=== PATIENT | male | born 1990 | race African-American/Black ===

== ENCOUNTER 2016-11-21 23:22 | Inpatient (IN) | payer MEDICAID ==
--- NOTE | 2016-11-16 21:40 | NUR ---
INFORMED DR. CHERY PATIENT WENT ON AMA.
[~2016-11-21] VITALS: Ht 167.6 cm; Wt 120.7 kg
[2016-11-21 23:31] VITALS: BP 142/58
--- NOTE | 2016-11-21 23:36 | NUR ---
PT TAKEN TO BED 6
--- NOTE | 2016-11-21 23:38 | NUR ---
PT IS 25M BIB BROTHER TO ED WITH C/O ANAL ABCESS, FEVER AND CHILLS X 2 DAYS AGO. CURRENT TEMP IS 101.4 F. PT STATES NO MED HX. DENIES N/V/D; SKIN IS PINK/WARM/DRY; AAOX4 WITH EVEN AND STEADY GAIT; LUNGS CLEAR BL; HR EVEN AND REGULAR; PT DENIES ANY FEVER, CP, SOB, OR COUGH AT THIS TIME; PATIENT STATES PAIN OF 10/10 AT THIS TIME; VSS; PATIENT POSITIONED FOR COMFORT; HOB ELEVATED; BEDRAILS UP X2; BED DOWN. ER MD MADE AWARE OF PT STATUS.
[2016-11-21] MEDS ORDERED: ONDANSETRON 4 MG/2 ML VIAL IVP ONE (23:55)
[2016-11-21] MEDS ORDERED: SULFAMETH/TRIMETH DS 800/160MG 1 TAB PO ONE (23:55)
[2016-11-21] MEDS ORDERED: MORPHINE SULFATE 4 MG/ML SYR IVP ONE (23:55)
[2016-11-22] MEDS ORDERED: ceFAZolin 1,000 MG VIAL ONE (00:07)
[2016-11-22] MEDS ORDERED: MORPHINE SULFATE 4 MG/ML SYR IVP ONE (00:40)
--- NOTE | 2016-11-22 00:55 | NUR ---
DR ARRIAGA AT BEDSIDE DOING I&D PROCEDURE
[2016-11-22] MEDS ORDERED: fentaNYL 0.05 MG/ML VIAL IVP ONE (01:10)
[2016-11-22] MEDS ORDERED: LORazepam 2 MG/ML VIAL IVP PRN (01:50)
[2016-11-22] MEDS ORDERED: ONDANSETRON 4 MG/2 ML VIAL IVP PRN (01:50)
[2016-11-22] MEDS ORDERED: MORPHINE SULFATE 2 MG/ML SYR IVP PRN (01:50)
--- NOTE | 2016-11-22 01:53 | NUR ---
PT TAKEN OFF THE UNIT VIA WHEELCHAIR TO HAVE CT DONE.
[2016-11-22] MEDS ORDERED: NACL 0.9% 1,000 ML IV ONE (02:05)
[2016-11-22] MEDS ORDERED: AMPICILLIN/SULBACTAM 3 GM in NACL 0.9% 100 ML IV ONE (02:05)
[2016-11-22] MEDS ORDERED: AMPICILLIN/SULBACTAM 3 GM VIAL ONE (02:16)
--- NOTE | 2016-11-22 02:33 | NUR ---
PT RETURN FROM CT
[2016-11-22] MEDS: AMPICILLIN/SULBACTAM 3 GM in NACL 0.9% 100 ML IV SCH ×3 (02:38→17:48)
--- NOTE | 2016-11-22 02:47 | NUR ---
Patient will be admitted to care of DR LYN. Admited to TELE. Will go to [id number]. Belongings list completed. Report to CAITY MARI.
--- NOTE | 2016-11-22 03:05 | NUR ---
ADMITTED 25 YEAR OLD PT FROM ER. PT ARRIVED VIA GURNEY. INITIAL ASSESSMENT COMPLETED. PT AAOX4. PT DENIES PAIN AT THIS TIME. PT AMBULATES PT HAS DRESSING ON LEFT BUTTOCK. VS STABLE. PT HAS IV TO LEFT FAA G 22 AND LEFT AC G 20; BOTH ASYMPTOMATIC, PATENT AND INTACT. ORIENTED PT TO ROOM AND SURROUNDINGS AND USE OF CALL LIGHT. EXPLAINED PLAN OF CARE TO PT AND HE VERBALIZES UNDERSTANDING. CALL LIGHT WITHIN REACH.
[2016-11-22 04:00] VITALS: BP 120/79
[2016-11-22] MEDS: NACL 0.9% 1,000 ML IV SCH ×4 (04:13→18:30)
--- NOTE | 2016-11-22 05:01 | NUR ---
PT USING HIS CELL PHONE. PT DENIES PAIN. WILL CONTINUE TO MONITOR PT.
--- NOTE | 2016-11-22 07:10 | NUR ---
ENDORSED PLAN OF CARE TO DAY SHIFT NURSE. PT IN STABLE CONDITION.
--- NOTE | 2016-11-22 07:30 | NUR ---
RECEIVED REPORT FROM NIGHT NURSE. PT RESTING COMFORTABLY IN BED, AOX4, ABLE TO VERBALIZE NEEDS. NO CP, SOB OR S/S OF ACUTE DISTRESS. DRESSING TO BUTTOCKS, CLEAN DRY AND INTACT. PT C/O TOLERABLE PAIN, PT REFUSES PAIN MEDICATION. PT ENCOURAGED TO FREQUENT REPOSITIONING, RELAXATION AND DISTRACTION. GLOST KILN PLACER IN PLACE. IV ACCESS SITE ASYMPTOMATIC, PATENT AND INTACT. IVF INFUSING WELL. REVIEWED AND DISCUSSED PLAN OF CARE WITH PT. PT VERBALIZES UNDERSTANDING. SAFETY MEASURES ENSURED. CALL LIGHT WITHIN REACH. WILL CONTINUE TO MONITOR.
[2016-11-22 08:00] VITALS: BP 112/71
--- NOTE | 2016-11-22 09:03 | NUR ---
PATIENT HAS BEEN SCREENED AND CATEGORIZED HIGH NUTRITION RISK. PATIENT WILL BE SEEN WITHIN 1-2 DAYS OF ADMISSION. 11/22/16-11/23/[address]
--- NOTE | 2016-11-22 09:45 | NUR ---
ASSISTED PT WITH ADLS. PT TOLERATING WELL. ALL NEEDS MET.
--- NOTE | 2016-11-22 11:30 | NUR ---
IVF INFUSING WELL. CONDITION STABLE. ALL NEEDS MET. SAFETY MEASURES ENSURED. WILL CONTINUE TO MONITOR.
[2016-11-22 12:00] VITALS: BP 112/60
--- NOTE | 2016-11-22 14:05 | NUR ---
IV CANNULAS SEEN AT BEDSIDE TABLE. PT STATED HE REMOVED THE IV CANNULAS BECAUSE THEY WERE HURTING. PT STATED RELIEF OF PAIN AFTER REMOVAL. IV CANNULAS INTACT, PREVIOUS IV SITES ASYMPTOMATIC. PT EDUCATED NOT TO REMOVE IV SITES AND EXPLAINED THE NEED FOR IV SITE FOR IV ANTIBIOTICS. PT VERBALIZES UNDERSTANDING. WILL REINSERT NEW IV SITE. ALL NEEDS MET. SAFETY MEASURES ENSURED. WILL CONTINUE TO MONITOR.
--- NOTE | 2016-11-22 15:50 | NUR ---
PT'S DRESSING DRESSING ON TOP OF BUTTOCKS CHANGED AND REINFORCED. PT REPORTS PAIN AND WITHDRAWS FROM TOUCH UPON CLEANING AND POSITIONING OF DRESSING. ALL NEEDS MET. SAFETY MEASURES ENSURED. CALL LIGHT WITHIN REACH. WILL CONTINUE TO MONITOR. Addendum: 11/22/16 at 1810 by Raymundo Escobedo RN TO ADD: WOUND PACKING NOT CHANGED DUE TO DR LUKE TO SEE PT FOR CONSULT THIS EVENING.
[2016-11-22 16:00] VITALS: BP 122/74
--- NOTE | 2016-11-22 17:50 | NUR ---
IV STARTED ON LEFT FOREARM, ASYMPTOMATIC, PATENT AND INTACT. PT TOLERATED WELL. IVF INFUSING WELL. ALL NEEDS MET. SAFETY MEASURES ENSURED. WILL CONTINUE TO MONITOR.
--- NOTE | 2016-11-22 19:28 | NUR ---
ENDORSED PLAN OF CARE TO NIGHT NURSE. CONDITION STABLE.
--- NOTE | 2016-11-22 19:29 | NUR ---
RECD. RESTING IN BED, AWAKE, A/OX4. RESPIRATION EVEN AND UNLABORED. IV OF NS AT 200 ML/HR INFUSING, RIGHT FOREARM G. 22. INCISION IN THE LEFT BUTTOCKS COVERED WITH DRESSING, DRY AND INTACT. PAIN IN THE SITE 08/07, CLAIMED TOLERABLE. WAITING FOR DR. LUKE TO COME. ON IV ANTIBIOTICS. PLAN OF CARE FOR THE SHIFT DISCUSSED. VERBALIZED UNDERSTANDING.
[2016-11-22 20:00] VITALS: BP 115/77
--- NOTE | 2016-11-22 20:00 | NUR ---
Patient's Plan of Care was discussed and reviewed with ALCOHOL AND DRUG COUNSELOR: CIARAN HURLEY
--- NOTE | 2016-11-22 20:30 | NUR ---
WANTS TO GO HOME TONIGHT. STATED HE HAS BEEN WAITING SINCE MORNING TO SEE SURGEON. EXPLAINED MD IS COMING TONIGHT TO SEE HIM ENDORSED BY AM NURSE. INSTRUCTED PATIENT TO WAIT AND WILL CALL DR LUKE.
--- NOTE | 2016-11-22 20:30 | NUR ---
CHARGE NURSE ANISH MADE AWARE OF PATIENT PLAN TO GO AMA.
--- NOTE | 2016-11-22 20:35 | NUR ---
SPOKE WITH DR. LUKE, INFORMED PATIENT WANTS TO GO AMA, STATED HE'S COMING IN AN HOUR TO SEE PATIENT.
--- NOTE | 2016-11-22 20:40 | NUR ---
EXPLAINED TO PATIENT THAT MD IS COMING TO SEE HIM ANG HE NEEDS ANTIBIOTICS TO PREVENT INFECTION IN HIS WOUND. BUT PATIENT CANNOT WAIT, STILL WANTS TO GO HOME. BROTHER IS AT THE BEDSIDE TO TAKE HIM HOME. IV DISCONTINUED AND TAKEN OUT. PATIENT SIGNED AMA PAPERS.
--- NOTE | 2016-11-22 20:45 | NUR ---
ALL BELONGINGS TAKEN, AMBULATED IN THE HALLWAY WITH BROTHER WHO WILL TAKE PATIENT HOME. INFORMED PLACEMENT COORDINATOR OWEN OF PATIENT GOING AMA.
--- NOTE | 2016-11-22 21:40 | NUR ---
INFORMED DR. CHERY PATIENT WENT ON AMA.
== END 2016-11-22 20:45 | disposition left against medical advice (07) | DRG 720 ==
LOC: MED 23:22 → MTU 11-22 01:51
PROVIDERS: ADMIT Family Medicine; ATTEND Family Medicine
PROC: 0Y913ZZ Drainage of Left Buttock, Percutaneous Approach (ICD-10-PCS; principal; 2016-11-22)
DX: A41.9 Sepsis, unspecified organism (principal); N17.0 Acute kidney failure with tubular necrosis; L03.317 Cellulitis of buttock; Z68.41 Body mass index [BMI] 40.0-44.9, adult; E66.01 Morbid (severe) obesity due to excess calories; E44.0 Moderate protein-calorie malnutrition; E83.41 Hypermagnesemia; R00.0 Tachycardia, unspecified; Z53.21 Procedure and treatment not carried out due to patient leaving prior to being seen by health care provider; Z72.89 Other problems related to lifestyle; Z56.0 Unemployment, unspecified; L02.31 Cutaneous abscess of buttock

== ENCOUNTER 2017-01-27 18:27 | Emergency (ER) | payer SELFPAY ==
[~2017-01-27] VITALS: Ht 170.2 cm; Wt 119.3 kg
[2017-01-27 19:02] VITALS: BP 141/71
--- NOTE | 2017-01-27 20:28 | NUR ---
PT TAKEN TO BED 5
--- NOTE | 2017-01-27 20:30 | NUR ---
PT PRESENTS TO ER FOR EVALUATION OF ABSCESS TO LEFT BUTTOCK. PT STATES HE'S HAD THE ABSCESS X1 WEEK. PT DENIES N/V/D; SKIN IS PINK/WARM/DRY; AAOX4 WITH EVEN AND STEADY GAIT; LUNGS CLEAR BL; HR EVEN AND REGULAR; PT DENIES ANY FEVER, CP, SOB, OR COUGH AT THIS TIME; PATIENT STATES PAIN OF 10/10 AT THIS TIME; VSS; PATIENT POSITIONED FOR COMFORT; HOB ELEVATED; BEDRAILS UP X2; BED DOWN. ER MD MADE AWARE OF PT STATUS.
--- NOTE | 2017-01-27 21:37 | NUR ---
Dr. Etienne evaluating patient at bedside.
[2017-01-27] MEDS ORDERED: LIDOCAINE 1% 500 MG/50 ML VIAL INJ ONE (22:00)
[2017-01-27] MEDS ORDERED: MIDAZOLAM 2 MG/2 ML VIAL IVP ONE (22:05)
[2017-01-27] MEDS ORDERED: KETAMINE 500 MG/5 ML VIAL IVP ONE (22:05)
[2017-01-27] MEDS ORDERED: NACL 0.9% 1,000 ML IV ONE (22:05)
[2017-01-27] MEDS ORDERED: IBUPROFEN 800 MG TAB ONE (22:13)
--- NOTE | 2017-01-27 22:45 | NUR ---
I&D Procedure done by Dr TURK. Wound was packed. Pt tolerated procedure. Wound care discussed w/ patient. VITAL SIGNS CHARTED FOR PROCEDURE.
--- NOTE | 2017-01-27 23:00 | NUR ---
Patient noted to have existing wounds upon arrival to ER. Wound covered with dressing. Physician informed.
--- NOTE | 2017-01-27 23:55 | NUR ---
Patient discharged with v/s stable. Written and verbal after care instructions given and explained. Patient verbalized understanding. Ambulatory with steady gait. All questions addressed prior to discharge. Advised to follow up with PMD.
[2017-01-28 04:48] VITALS: BP 141/86
== END 2017-01-27 23:55 | disposition home or self-care (01) ==
LOC: MED 18:27
DX: K61.0 Anal abscess (principal); R03.0 Elevated blood-pressure reading, without diagnosis of hypertension
CPT/HCPCS: 46050; 96360; 99152; 99285; J2001; J2250; J7030